=== PATIENT | male | born 1995 | race Caucasian/White ===

== ENCOUNTER 2018-09-19 11:18 | Emergency (ER) | payer SELFPAY ==
--- NOTE | 2018-09-19 12:12 | EDPHYS ---
Physician Documentation [facility] Name: uHssain Newton Age: 23 yrs Sex: Male : 1995 Arrival Date: 09/19/2018 Time: 11:19 Bed 18 Private MD: ED Physician Tomás Ferro HPI: 09/19 11:34 This 23 yrs old Male presents to ER via Ambulatory with complaints of buttock jmm drainage. 11:34 The patient presents to the emergency department with drainage. Onset: The jmm symptoms/episode began/occurred 1 month(s) ago. Modifying factors: The symptoms are alleviated by nothing, The symptoms are aggravated by nothing. Associate signs and symptoms: Pertinent negatives: fever. This is a 23 year old male with a history of anxiety, depression, htn that presents to the ED with drainage from his buttocks for 1 month. Patient states the drainage is occasionally bloody. Denies fever, denies chills. . Historical: - Allergies: 11:26 Abilify; ss - Home Meds: 11:26 None [Active]; ss - PMHx: 11:26 Anxiety; Depression; ss - PSHx: 11:26 Tonsillectomy; ss - Immunization history:: Adult Immunizations up to date. - Social history:: Smoking status: Patient/guardian denies using tobacco. - Ebola Screening: : Patient denies exposure to infectious person Patient denies travel to an Ebola-affected area in the 21 days before illness onset. ROS: 11:34 Constitutional: Negative for fever, chills, and weight loss, Cardiovascular: Negative jmm for chest pain, palpitations, and edema, Respiratory: Negative for shortness of breath, cough, wheezing, and pleuritic chest pain. 11:34 MS/extremity: Positive for drainage. 11:34 Skin: Positive for 11:34 All other systems are negative. Exam: 11:34 Constitutional: This is a well developed, well nourished patient who is awake, alert, jmm and in no acute distress. Head/Face: atraumatic. Eyes: EOMI, no conjunctival erythema appreciated ENT: Moist Mucus Membranes Neck: Trachea midline, Supple Chest/axilla: Normal chest wall appearance and motion. Cardiovascular: Regular rate and rhythm. No edema appreciated Respiratory: Normal respirations, no respiratory distress appreciated 11:34 Abdomen/GI: Inspection: obese Palpation: abdomen is soft and non-tender, in all quadrants. 11:34 Skin: open pilonidal sinus noted without surrounding erythema or purulent drainage appreciated at the gluteal cleft. . 11:34 Neuro: Orientation: is normal, Mentation: is normal, Memory: is normal. 11:34 Psych: Behavior/mood is pleasant, cooperative. Vital Signs: 11:26 BP 191 / 84; Pulse 87; Resp 23; Temp 98.3(TE); Pulse Ox 99% on R/A; Height 6 ft. 0 in. ss (182.88 cm); Pain 0/10; 12:11 BP 178 / 94; Pulse 84; Resp 16; Pulse Ox 98% on R/A; iw MDM: 11:34 Patient medically screened. [facility] 12:01 Data reviewed: vital signs, nurses notes. Counseling: I had a detailed discussion with [facility] the patient and/or guardian regarding: the historical points, exam findings, and any diagnostic results supporting the discharge/admit diagnosis, the need for outpatient follow up, to return to the emergency department if symptoms worsen or persist or if there are any questions or concerns that arise at home. 12:01 ED course: PE findings consistent with pilonidal sinus without infection. Patient is [facility] advised to follow up with gen surgery and otherwise given strict return precautions. Patient understood and agrees with the plan of care. . 12:01 Counseling: I had a detailed discussion with the patient and/or guardian regarding: the m presence of at least one elevated blood pressure reading (>120/80) during this emergency department visit. 09/19 11:38 Order name: Vital Signs; Complete Time: 12:12 [facility] Administered Medications: No medications were administered Disposition: 15:15 Co-signature as Attending Physician, Tomás Ferro MD I agree with the assessment and [facility] plan of care. Disposition: 09/19/18 12:11 Discharged to Home. Impression: Pilonidal cyst and sinus. - Condition is Stable. - Discharge Instructions: Pilonidal Cyst. - Prescriptions for Bactrim DS 800- 160 mg Oral Tablet - take 1 tablet by ORAL route every 12 hours for 10 days; 20 tablet. - Medication Reconciliation Form, Thank You Letter, Antibiotic Education, Prescription Opioid Use form. - Follow up: Ousmane Montalvo MD; When: 2 - 3 days; Reason: Recheck today's complaints, Continuance of care, Re-evaluation by your physician. Signatures: Tomás Ferro MD MD cha Mickail, Joel, PA PA jmm Williams, Irene, RN RN iw Smirch, Shelby, RN RN ss Corrections: (The following items were deleted from the chart) 12:39 12:11 09/19/2018 12:11 Discharged to Home. Impression: Pilonidal cyst and sinus. iw Condition is Stable. Forms are Medication Reconciliation Form, Thank You Letter, Antibiotic Education, Prescription Opioid Use. Follow up: Ousmane Montalvo; When: 2 - 3 days; Reason: Recheck today's complaints, Continuance of care, Re-evaluation by your physician. [facility] 12:44 12:41 This 23 yrs old Male presents to ER via Ambulatory with complaints of jmm bloody drainage from buttock. jmm
--- NOTE | 2018-09-19 12:12 | ER ---
Nurse's Notes [facility] Name: Hussain Newton Age: 23 yrs Sex: Male : 1995 Arrival Date: 09/19/2018 Time: 11:19 Bed 18 Private MD: Diagnosis: Pilonidal cyst and sinus Presentation: 09/19 11:24 Presenting complaint: Patient states: bloody drainage from rectal area that began 1 ss month ago. Denies fever. Transition of care: patient was not received from another setting of care. Onset of symptoms is unknown. Risk Assessment: Do you want to hurt yourself or someone else? Patient reports no desire to harm self or others. Initial Sepsis Screen: Does the patient meet any 2 criteria? No. Patient's initial sepsis screen is negative. Does the patient have a suspected source of infection? No. Patient's initial sepsis screen is negative. Care prior to arrival: None. 11:24 Method Of Arrival: Ambulatory ss 11:24 Acuity: ROBERTA 3 ss Triage Assessment: 12:39 General: Appears in no apparent distress. Behavior is calm, cooperative. iw 12:39 Pain:. iw Historical: - Allergies: 11:26 Abilify; ss - Home Meds: 11:26 None [Active]; ss - PMHx: 11:26 Anxiety; Depression; ss - PSHx: 11:26 Tonsillectomy; ss - Immunization history:: Adult Immunizations up to date. - Social history:: Smoking status: Patient/guardian denies using tobacco. - Ebola Screening: : Patient denies exposure to infectious person Patient denies travel to an Ebola-affected area in the 21 days before illness onset. Screenin:38 Abuse screen: Denies threats or abuse. Denies injuries from another. Nutritional iw screening: No deficits noted. Tuberculosis screening: No symptoms or risk factors identified. Fall Risk None identified. Assessment: 11:55 General: Appears in no apparent distress. Behavior is calm, cooperative. Neuro: Level iw of Consciousness is awake, alert, obeys commands, Oriented to person, place, time, Moves all extremities. Cardiovascular: Patient's skin is warm and dry. Respiratory: Respiratory effort is even, unlabored. Derm: Skin is intact, is healthy with good turgor. Musculoskeletal: Range of motion: intact in all extremities. 12:38 Reassessment: Patient appears in no apparent distress at this time. Patient and/or iw family updated on plan of care and expected duration. Pain level reassessed. Patient is alert, oriented x 3, equal unlabored respirations, skin warm/dry/pink. Vital Signs: 11:26 BP 191 / 84; Pulse 87; Resp 23; Temp 98.3(TE); Pulse Ox 99% on R/A; Height 6 ft. 0 in. ss (182.88 cm); Pain 0/10; 12:11 BP 178 / 94; Pulse 84; Resp 16; Pulse Ox 98% on R/A; iw ED Course: 11:19 Patient arrived in ED. as 11:25 Triage completed. ss 11:26 Arm band placed on right wrist. 11:29 Caleb Benjamin PA is PHCP. [facility] 11:29 Tomás Ferro MD is Attending Physician. [facility] 11:56 Mayur Meyer LVN is Primary Nurse. em 12:10 Ousmane Montalvo MD is Referral Physician. [facility] 12:38 Patient has correct armband on for positive identification. iw 12:38 No provider procedures requiring assistance completed. Patient did not have IV access iw during this emergency room visit. Administered Medications: No medications were administered Outcome: 12:11 Discharge ordered by MD. [facility] 12:38 Discharged to home ambulatory. iw 12:38 Condition: good 12:38 Discharge instructions given to patient, Instructed on discharge instructions, follow up and referral plans. medication usage, Demonstrated understanding of instructions, follow-up care, medications, Prescriptions given X 1. 12:39 Patient left the ED. iw Signatures: Caleb Benjamin PA PA Mayur Murray LVN LVN em Myesha Montalvo as Michelle Matute, RN RN Salma Gonzalez RN RN
== END 2018-09-19 12:39 | disposition home or self-care (01) ==
LOC: ER 11:18
DX: L05.91 Pilonidal cyst without abscess (principal); Z88.8 Allergy status to other drugs, medicaments and biological substances
CPT/HCPCS: 99282

== ENCOUNTER 2021-10-04 22:02 | Emergency (ER) | payer SELFPAY ==
[2021-10-05] MEDS ORDERED: NA CHLORIDE 0.9% 1,000 ML ONE (00:19)
[2021-10-05] MEDS ORDERED: MORPHINE 4 MG/ML SYR ONE (00:19)
[2021-10-05] MEDS ORDERED: ONDANSETRON 4 MG/2 ML VIAL ONE (00:19)
[2021-10-05 00:47] LABS: Absolute Lymphocytes (CBC) 1.9 K/uL (0.7-4.9); Lymphocytes % 20.8 % (15.3-44.8); MCV 83.3 fL (80-100); MPV 8.1 fL (7.6-11.3); RBC Red Blood Cell Count 4.92 M/uL (4.33-5.43)
[2021-10-05 00:59] LABS: Albumin 2.9 g/dL (3.4-5.0); Bilirubin Direct 0.1 mg/dL (0-0.2); Bilirubin Total 0.5 mg/dL (0.2-1.0); Magnesium 1.7 mg/dL (1.8-2.4); Potassium 4.2 mmol/L (3.5-5.1); Protein, Total 6.9 g/dL (6.4-8.2)
[2021-10-05] MEDS ORDERED: METRONIDAZOLE 500mg IVPB 500 MG/100 ML BAG IV ONE (01:59)
[2021-10-05] MEDS ORDERED: CIPROFLOXACIN 400mg IV 400 MG/200 ML BAG IV ONE (01:59)
[2021-10-05 02:10] LABS: Urine Blood Negative (Negative); Urine Glucose Negative (Negative); Urine Protein Negative (Negative); Urine Specific Gravity >=1.030 (1.005-1.030); Urine pH 5.5 (5.0-7.0)
[2021-10-05 02:30] LABS: Urine Bacteria 20-50 /HPF (<20)
[2021-10-05 02:31] LABS: Urine RBC <5 /HPF (None Seen)
--- NOTE | 2021-10-05 02:38 | EDPHYS ---
Physician Documentation [facility] Name: Gilberto Nweton Age: 26 yrs Sex: Male : 1995 Arrival Date: 10/04/2021 Time: 22:05 Bed 2 Private MD: ED Physician Tomás Ferro HPI: 10/05 00:08 This 26 yrs old Male presents to ER via Ambulatory with complaints of danita Abdominal Pain, Diarrhea. 00:08 The patient presents to the emergency department with diarrhea, that is intermittent, danita abdominal pain, of the posterior aspect of left lateral abdomen, posterior aspect of right lateral abdomen, right lower quadrant and left lower quadrant. Onset: The symptoms/episode began/occurred today. Onset: The symptoms/episode began/occurred yesterday. Possible causes: unknown. The symptoms are aggravated by movement. Associated signs and symptoms: The patient has no apparent associated signs or symptoms. Severity of symptoms: At their worst the symptoms were. The patient has not experienced similar symptoms in the past. Historical: - Allergies: 10/04 22:28 Abilify; bb - PMHx: 22:28 Anxiety; Depression; bb - Immunization history:: Client reports having NOT received the Covid vaccine. - Social history:: Smoking status: Patient denies any tobacco usage or history of. ROS: 10/05 00:09 Constitutional: Negative for fever, chills, and weight loss, Eyes: Negative for injury, danita pain, redness, and discharge, ENT: Negative for injury, pain, and discharge, Neck: Negative for injury, pain, and swelling, Cardiovascular: Negative for chest pain, palpitations, and edema, Respiratory: Negative for shortness of breath, cough, wheezing, and pleuritic chest pain, Back: Negative for injury and pain, : Negative for injury, bleeding, discharge, and swelling, MS/Extremity: Negative for injury and deformity, Skin: Negative for injury, rash, and discoloration, Neuro: Negative for headache, weakness, numbness, tingling, and seizure, Psych: Negative for depression, anxiety, suicide ideation, homicidal ideation, and hallucinations, Allergy/Immunology: Negative for hives, rash, and allergies, Endocrine: Negative for neck swelling, polydipsia, polyuria, polyphagia, and marked weight changes, Hematologic/Lymphatic: Negative for swollen nodes, abnormal bleeding, and unusual bruising. Abdomen/GI: Positive for abdominal pain, diarrhea. Exam: 00:09 Constitutional: This is a well developed, well nourished patient who is awake, alert, danita and in no acute distress. Head/Face: Normocephalic, atraumatic. Eyes: Pupils equal round and reactive to light, extra-ocular motions intact. Lids and lashes normal. Conjunctiva and sclera are non-icteric and not injected. Cornea within normal limits. Periorbital areas with no swelling, redness, or edema. ENT: Nares patent. No nasal discharge, no septal abnormalities noted. Tympanic membranes are normal and external auditory canals are clear. Oropharynx with no redness, swelling, or masses, exudates, or evidence of obstruction, uvula midline. Mucous membranes moist. Neck: Trachea midline, no thyromegaly or masses palpated, and no cervical lymphadenopathy. Supple, full range of motion without nuchal rigidity, or vertebral point tenderness. No Meningismus. Chest/axilla: Normal chest wall appearance and motion. Nontender with no deformity. No lesions are appreciated. Cardiovascular: Regular rate and rhythm with a normal S1 and S2. No gallops, murmurs, or rubs. Normal PMI, no JVD. No pulse deficits. Respiratory: Lungs have equal breath sounds bilaterally, clear to auscultation and percussion. No rales, rhonchi or wheezes noted. No increased work of breathing, no retractions or nasal flaring. Back: No spinal tenderness. No costovertebral tenderness. Full range of motion. Male : Normal genitalia with no discharge or lesions. Skin: Warm, dry with normal turgor. Normal color with no rashes, no lesions, and no evidence of cellulitis. MS/ Extremity: Pulses equal, no cyanosis. Neurovascular intact. Full, normal range of motion. Neuro: Awake and alert, GCS 15, oriented to person, place, time, and situation. Cranial nerves II-XII grossly intact. Motor strength 5/5 in all extremities. Sensory grossly intact. Cerebellar exam normal. Normal gait. Psych: Awake, alert, with orientation to person, place and time. Behavior, mood, and affect are within normal limits. 00:09 Abdomen/GI: Inspection: distension, Bowel sounds: normal, Palpation: mild abdominal tenderness, in the right lower quadrant and left lower quadrant, Liver: no appreciated palpable abnormalities, Hernia: not appreciated. Vital Signs: 10/04 22:27 BP 179 / 85; Pulse 96; Resp 22 S; Temp 98.7(O); Pulse Ox 98% on R/A; Weight 259 kg (M); bb Height 6 ft. 0 in. (182.88 cm) (R); Pain 7/; 10/05 04:56 BP 130 / 80; Pulse 82; Resp 16; Temp 98(O); Pulse Ox 99% on R/A; Pain 0/10; kl 10/04 22:27 Body Mass Index 77.44 (259.00 kg, 182.88 cm) bb MDM: 10/04 23:45 Patient medically screened. [facility] 10/05 00:10 Differential diagnosis: Nonspecific abd pain, gastritis, cholecystitis, pancreatitis, danita appendicitis, diverticulitis, viral gastroenteritis, gastroenteritis, bowel obstruction, Cholelithiasis, diverticulitis, gastritis. Differential Diagnosis sepsis. Data reviewed: vital signs, nurses notes, lab test result(s), EKG, radiologic studies, CT scan, plain films. Data interpreted: campus monitor: rate is 96 beats/min, rhythm is regular, Pulse oximetry: on room air is 98 %. Test interpretation: by ED physician or midlevel provider: ECG, plain radiologic studies. Counseling: I had a detailed discussion with the patient and/or guardian regarding: the historical points, exam findings, and any diagnostic results supporting the discharge/admit diagnosis, lab results, radiology results, the need for outpatient follow up, for definitive care, a family practitioner. 10/04 23:59 Order name: Basic Metabolic Panel; Complete Time: 02:00 [facility] 10/04 23:59 Order name: CBC with Diff; Complete Time: 02:00 [facility] 10/04 23:59 Order name: LFT's; Complete Time: 02:00 [facility] 10/04 23:59 Order name: Magnesium; Complete Time: 02:00 [facility] 10/04 23:59 Order name: NT PRO-BNP; Complete Time: 02:00 [facility] 10/04 23:59 Order name: Troponin HS; Complete Time: 02:00 10/04 23:59 Order name: Lipase; Complete Time: 02:00 10/05 00:00 Order name: Urine Microscopic Only; Complete Time: 02:36 [facility] 10/05 00:00 Order name: Lactate [facility] 10/05 00:01 Order name: Fecal Leukocyte Stain [facility] 10/05 00:01 Order name: Stool Culture [facility] 10/05 02:10 Order name: Urine Dipstick-Ancillary; Complete Time: 02:36 EDMD 10/05 02:34 Order name: Urine Culture EDMD 10/04 23:59 Order name: EKG; Complete Time: 00:02 [facility] 10/04 23:59 Order name: Cardiac monitoring; Complete Time: 01:46 [facility] 10/04 23:59 Order name: EKG - Nurse/Tech; Complete Time: 01:41 [facility] 10/04 23:59 Order name: IV Saline Lock; Complete Time: 00:34 [facility] 10/04 23:59 Order name: Labs collected and sent; Complete Time: 01:46 [facility] 10/04 23:59 Order name: O2 Per Protocol; Complete Time: 00:34 [facility] 10/04 23:59 Order name: O2 Sat Monitoring; Complete Time: 00:34 [facility] 10/05 00:00 Order name: Abdomen Acute Series XRAY [facility] 10/05 00:00 Order name: Urine Dipstick-Ancillary (obtain specimen); Complete Time: 02:16 [facility] Administered Medications: 00:32 Drug: morphine 4 mg Route: IVP; Infused Over: 4 mins; Site: left antecubital; kl 00:32 Drug: Zofran (Ondansetron) 4 mg Route: IVP; Site: left antecubital; kl 02:08 Drug: Flagyl (metroNIDAZOLE) 500 mg Volume: 100 ml; Route: IVPB; Rate: 200 ml/hr; kl Infused Over: 30 mins; Site: left antecubital; 02:11 Drug: NS 0.9% 1000 ml Route: IV; Rate: 1 bolus; Site: left forearm; kd3 02:40 Drug: Cipro (ciprofloxacin) 400 mg Volume: 200 ml; Route: IVPB; Infused Over: 60 mins; kl Site: right antecubital; 03:50 Drug: Magnesium Sulfate 2 grams Route: IVPB; Infused Over: 1 hrs; Site: left kl antecubital; Disposition Summary: 10/05/21 02:37 Discharge Ordered Location: Home danita Problem: new danita Symptoms: have improved danita Condition: Stable danita Diagnosis - Abdominal pain, Generalized danita - Diarrhea, unspecified danita - Morbid (severe) obesity due to excess calories danita - Hypomagnesemia [facility] Followup: danita - With: Private Physician - When: 2 - 3 days - Reason: Recheck today's complaints, Continuance of care, Re-evaluation by your physician Discharge Instructions: - Discharge Summary Sheet danita - Abdominal Pain, Adult danita - Diarrhea, Adult danita - Obesity, Adult danita - Abdominal Pain, Adult, [id number] danita - Hypomagnesemia danita - Diarrhea, Adult, [id number] [facility] Forms: - Medication Reconciliation Form [facility] - Thank You Letter [facility] - Antibiotic Education [facility] - Prescription Opioid Use [facility] Prescriptions: - Flagyl 500 mg Oral Tablet - take 1 tablet by ORAL route every 8 hours for 7 days; 21 tablet; Refills: 0, [facility] Product Selection Permitted - Pepcid 20 mg Oral Tablet - take 1 tablet by ORAL route every 12 hours for 10 days; 20 tablet; Refills: 0, [facility] Product Selection Permitted - Cipro 500 mg Oral Tablet - take 1 tablet by ORAL route every 12 hours for 7 days; 14 tablet; Refills: 0, [facility] Product Selection Permitted - dicyclomine 20 mg Oral Tablet - take 1 tablet by ORAL route 4 times per day; 28 tablet; Refills: 0, Product [facility] Selection Permitted Signatures: Dispatcher [employer] Indiana Ortiz RN Tomás Whitney MD MD cha Ballard, Brenda, RN RN bb Doucette, Kyli, RN RN kd3 Corrections: (The following items were deleted from the chart) 01:23 00:04 Chest Single View+[email or web address] ordered. EDMD EDMS
--- NOTE | 2021-10-05 02:38 | ER ---
Nurse's Notes [facility] Name: Gilberto Newton Age: 26 yrs Sex: Male : 1995 Arrival Date: 10/04/2021 Time: 22:05 Bed 2 Private MD: Diagnosis: Abdominal pain, Generalized;Diarrhea, unspecified;Morbid (severe) obesity due to excess calories;Hypomagnesemia Presentation: 10/04 22:27 Chief complaint: Patient states: he woke up around 1500 today with abdominal pain and bb diarrhea x 8. Coronavirus screen: At this time, the client does not indicate any symptoms associated with coronavirus-19. Ebola Screen: No symptoms or risks identified at this time. Initial Sepsis Screen: Does the patient meet any 2 criteria? No. Patient's initial sepsis screen is negative. Does the patient have a suspected source of infection? No. Patient's initial sepsis screen is negative. Risk Assessment: Do you want to hurt yourself or someone else? Patient reports no desire to harm self or others. Onset of symptoms was October 04, 2021. 22:27 Method Of Arrival: Ambulatory bb 22:27 Acuity: ROBERTA 3 bb Triage Assessment: 22:28 General: Appears uncomfortable, obese, Behavior is calm, cooperative. Pain: Complains bb of pain in abdomen Pain currently is 7 out of 10 on a pain scale. Neuro: Level of Consciousness is awake, alert, obeys commands, Oriented to person, place, time, situation. Cardiovascular: Capillary refill is > 3 seconds Patient's skin is warm and dry. Respiratory: Respiratory effort is labored. GI: Abdomen is obese, Reports lower abdominal pain, upper abdominal pain, diarrhea. Musculoskeletal: Circulation, motion, and sensation intact. Historical: - Allergies: 22:28 Abilify; bb - PMHx: 22:28 Anxiety; Depression; bb - Immunization history:: Client reports having NOT received the Covid vaccine. - Social history:: Smoking status: Patient denies any tobacco usage or history of. Screenin/11 04:56 Abuse screen: Denies threats or abuse. Nutritional screening: No deficits noted. kl Tuberculosis screening: No symptoms or risk factors identified. Fall Risk None identified. Assessment: 10/04 23:45 General: Appears uncomfortable, obese, Behavior is calm, cooperative. Pain: Complains kl of pain in left lower quadrant and right lower quadrant. Neuro: No deficits noted. Cardiovascular: No deficits noted. Respiratory: No deficits noted. GI: Bowel sounds present X 4 quads. Abd is soft Abdomen is tender to palpation X 4 quads. : No deficits noted. No signs and/or symptoms were reported regarding the genitourinary system. EENT: No deficits noted. No signs and/or symptoms were reported regarding the EENT system. Derm: No deficits noted. No signs and/or symptoms reported regarding the dermatologic system. Vital Signs: 22:27 BP 179 / 85; Pulse 96; Resp 22 S; Temp 98.7(O); Pulse Ox 98% on R/A; Weight 259 kg (M); bb Height 6 ft. 0 in. (182.88 cm) (R); Pain 7; 10/05 04:56 BP 130 / 80; Pulse 82; Resp 16; Temp 98(O); Pulse Ox 99% on R/A; Pain 010; kl 10/04 22:27 Body Mass Index 77.44 (259.00 kg, 182.88 cm) ED Course: 10/04 22:05 Patient arrived in ED. bp1 22:28 Triage completed. bb 22:28 Arm band placed on Patient placed in waiting room, Patient notified of wait time. bb 23:45 Tomás Ferro MD is Attending Physician. [facility] 10/05 00:21 Missed attempt(s): 20 gauge in left antecubital area. kl 01:15 Talita Miguel, RN is Primary Nurse. kd3 01:25 Abdomen Acute Series XRAY In Process Unspecified. EDMS 01:45 No apparent distress. Resting quietly. Appears to be sleeping. kl 02:12 Fecal Leukocyte Stain Sent. kd3 02:12 Stool Culture Sent. kd3 02:16 Urine Microscopic Only Sent. kd3 02:30 No apparent distress. Resting quietly. Appears to be sleeping. kl 04:56 No provider procedures requiring assistance completed. IV discontinued, intact, kl bleeding controlled, No redness/swelling at site. Pressure dressing applied. Administered Medications: 00:32 Drug: morphine 4 mg Route: IVP; Infused Over: 4 mins; Site: left antecubital; kl 00:32 Drug: Zofran (Ondansetron) 4 mg Route: IVP; Site: left antecubital; kl 02:08 Drug: Flagyl (metroNIDAZOLE) 500 mg Volume: 100 ml; Route: IVPB; Rate: 200 ml/hr; kl Infused Over: 30 mins; Site: left antecubital; 02:11 Drug: NS 0.9% 1000 ml Route: IV; Rate: 1 bolus; Site: left forearm; kd3 02:40 Drug: Cipro (ciprofloxacin) 400 mg Volume: 200 ml; Route: IVPB; Infused Over: 60 mins; kl Site: right antecubital; 03:50 Drug: Magnesium Sulfate 2 grams Route: IVPB; Infused Over: 1 hrs; Site: left kl antecubital; Outcome: 02:37 Discharge ordered by MD. samayoa 04:57 Patient left the ED. Signatures: Dispatcher [employer] EDMS Indiana Johnson RN RN kl Anderson, Corey, MD MD cha Ballard, Brenda, RN RN bb Paniauga, Brittany bp1 Doucette, Kyli, RN RN kd3
[2021-10-05] MEDS ORDERED: Magnesium Sulfate 2gm IVPB 2 G/50 ML BAG IV ONE (02:49)
[2021-10-05 05:05] VITALS: BP 130/80; TEMP 98; O2SAT 99
--- NOTE | 2021-10-05 14:31 | EKG ---
Test Date: 2021-10-05 Test Time: 01:42:09 Vamp Cut Out Worker: DIANNE MEASUREMENT RESULTS: Intervals: Rate: 73 MS: 192 QRSD: 98 QT: 382 QTc: 420 [place]: P: 27 MS: 192 QRS: 72 T: 56 INTERPRETIVE STATEMENTS: Normal sinus rhythm Normal ECG No previous ECG available for comparison Electronically Signed On 10-05-21 14:30:21 CDT by Juarez Davies
--- NOTE | 2021-10-05 18:44 | RAD REPORT ---
EXAM DESCRIPTION: RAD - Abdomen Acute Series - 10/05/2021 1:24 am CLINICAL HISTORY: Abdominal distention COMPARISON: None. FINDINGS: Single frontal view of the chest. Upright and supine views of the abdomen. Large body habi tus. Cardiomediastinal silhouette: Normal size and contour. Lungs: No consolidation, pneumothorax, or pleural effusion. Bones: No acute osseous abnormality. Bowel: No dilated loops of large or small bowel. Peritoneum: No free intraperitoneal air identified. Solid organs: No definite organomegaly. Calcifications: No abnormal calcifications. IMPRESSION: 1. No acute pulmonary process identified. 2. Nonobstructive bowel gas pattern. Electronically signed by: Russ Arevalo 10/05/2021 2:19 AM CDT Due to temporary technical issues with the PACS/Fluency reporting system, reports are being signed by the in house radiologists without review as a courtesy to insure prompt reporting. The interpreting radiologist is fully responsible for the content of the report.
== END 2021-10-05 04:57 | disposition home or self-care (01) ==
LOC: ER 22:02
DX: R10.84 Generalized abdominal pain (principal); R19.7 Diarrhea, unspecified; E83.42 Hypomagnesemia; E66.01 Morbid (severe) obesity due to excess calories; Z68.45 Body mass index [BMI] 70 or greater, adult; F41.9 Anxiety disorder, unspecified; F32.A Depression, unspecified
CPT/HCPCS: 36415; 74022; 80048; 80076; 81003; 81015; 83605; 83690; 83735; 83880; 84484; 85025; 87045; 87046; 87086; 87088; 89055; 93005; 99283; J0744; J2405; J3475; J7030

== ENCOUNTER 2022-05-08 09:38 | Emergency (ER) | payer OTHER ==
[2022-05-08 10:30] LABS: Absolute Lymphocytes (CBC) 3.2 K/uL (0.7-4.9); Lymphocytes % 33.1 % (15.3-44.8); MCV 84.4 fL (80-100); MPV 7.6 fL (7.6-11.3); RBC Red Blood Cell Count 5.33 M/uL (4.33-5.43)
[2022-05-08 10:51] LABS: Magnesium 2.1 mg/dL (1.6-2.4); Potassium 4.1 mmol/L (3.5-5.1); Troponin High Sensitivity 7.3 pg/mL (<58.9)
--- NOTE | 2022-05-08 12:28 | RAD REPORT ---
EXAM DESCRIPTION: RAD - Hip Left 2 View - 05/08/2022 11:29 am CLINICAL HISTORY: PAIN COMPARISON: No comparisons FINDINGS: Mild arthritic changes are present left hip. No fracture appreciated. Significant soft tis livier artifact limits the quality of the study. Consider CT imaging if pain persists or progresses.
--- NOTE | 2022-05-08 12:28 | RAD REPORT ---
EXAM DESCRIPTION: RAD - Chest Single View - 05/08/2022 11:29 am CLINICAL HISTORY: DYSPNEA Chest pain. COMPARISON: Abdomen Acute Series dated 10/05/2021 FINDINGS: Portable technique limits examination quality. The lungs are grossly clear. The heart is normal in size. No displaced fractures. IMPRESSION: No acute intrathoracic process suspected.
[2022-05-08] MEDS ORDERED: HYDROCODONE/APAP 10/325 TAB ONE (12:54)
[2022-05-08] MEDS ORDERED: KETOROLAC 30 MG/ML INJ ONE (12:54)
--- NOTE | 2022-05-08 12:59 | ER ---
Nurse's Notes [facility] Name: Hussain Newton Age: 26 yrs Sex: Male : 1995 Arrival Date: 05/08/2022 Time: 09:39 Bed 5 Private MD: Diagnosis: Dyspnea, unspecified;Pain in left hip Presentation: 05/08 09:45 Chief complaint: SOB on exertion x years, left hip pain x 3 days. Denies injury. hb Coronavirus screen: At this time, the client does not indicate any symptoms associated with coronavirus-19. Ebola Screen: No symptoms or risks identified at this time. Initial Sepsis Screen: Does the patient meet any 2 criteria? No. Patient's initial sepsis screen is negative. Does the patient have a suspected source of infection? No. Patient's initial sepsis screen is negative. Risk Assessment: Do you want to hurt yourself or someone else? Patient reports no desire to harm self or others. Onset of symptoms was May 05, 2022. 09:45 Method Of Arrival: Ambulatory hb 09:45 Acuity: ROBERTA 2 ss Historical: - Allergies: 09:46 Abilify; hb - PMHx: 09:46 Anxiety; Depression; hb - Immunization history:: Adult Immunizations up to date. - Social history:: Smoking status: Patient denies any tobacco usage or history of. Screenin:12 [facility] ED Fall Risk Assessment (Adult) History of falling in the last 3 months, sg5 including since admission No falls in past 3 months (0 pts). Abuse screen: Denies threats or abuse. Nutritional screening: Obesity. Tuberculosis screening: No symptoms or risk factors identified. Assessment: 10:12 General: Appears uncomfortable, Behavior is calm, cooperative, appropriate for age, sg5 Reports fatigue for >3 days. Pain: Complains of pain in Left hip. Pain does not radiate. Pain currently is 4 out of 10 on a pain scale. at worst was 8 out of 10 on a pain scale. Cardiovascular: No deficits noted. Reports shortness of breath, Heart tones S1 S2 present Rhythm is regular. Respiratory: Reports shortness of breath on exertion Airway is patent Respiratory effort is unlabored, Breath sounds are diminished bilaterally. in left lower lobe, right lower lobe, left posterior lower lobe, right posterior middle lobe and right posterior lower lobe Breath sounds with wheezes bilaterally. GI: No deficits noted. No signs and/or symptoms were reported involving the gastrointestinal system. : No deficits noted. No signs and/or symptoms were reported regarding the genitourinary system. EENT: No deficits noted. No signs and/or symptoms were reported regarding the EENT system. Derm: No deficits noted. No signs and/or symptoms reported regarding the dermatologic system. Musculoskeletal: Reports pain in Left Hip. 11:22 Reassessment: No changes from previously documented assessment. Patient and/or family sg5 updated on plan of care and expected duration. Pain level reassessed. Patient is alert, oriented x 3, equal unlabored respirations, skin warm/dry/pink. Vital Signs: 09:45 BP 166 / 84; Pulse 129; Resp 24; Pulse Ox 96% on R/A; Weight 226.8 kg; Height 6 ft. 0 hb in. ; Pain 7/10; 11:16 BP 156 / 75; Pulse 98; Resp 20; Pulse Ox 96% on R/A; Pain 5/10; sg5 12:19 BP 152 / 94; Pulse 95; Resp 18; Pulse Ox 98% on R/A; ld1 12:33 BP 162 / 88; Pulse 93; Resp 20; Pulse Ox 98% on R/A; Pain 4/10; sg5 09:45 Body Mass Index 67.81 (226.80 kg, 182.88 cm) hb 09:45 Pain Scale: Adult hb 11:16 Pain Scale: Adult sg5 12:33 Pain Scale: Adult sg5 ED Course: 09:39 Patient arrived in ED. am2 09:40 [facility]allie Hernandez [facility]C [facility] kb 09:40 Henrry Best MD is Attending Physician. kb 09:46 Triage completed. hb 09:46 Arm band placed on. hb 10:11 Dori Mabry, LAVERN is Primary Nurse. sg5 10:12 Patient has correct armband on for positive identification. Bed in low position. Call sg5 light in reach. Side rails up X 1. 10:20 Inserted saline lock: 22 gauge in right upper arm, using aseptic technique. Blood ll1 collected. 11:31 XRAY Chest (1 view) In Process Unspecified. EDMS 11:31 Hip Left 2 View XRAY In Process Unspecified. EDMS Administered Medications: 12:53 Drug: Ketorolac IVP 15 mg Route: IVP; Site: right upper arm; ld1 12:53 Drug: [place] PO 10 mg-325 mg 1 tabs Route: PO; ld1 Medication: 10:12 VIS not applicable for this client. sg5 Outcome: 12:59 Discharge ordered by MD. montes Signatures: Dispatcher [employer] EDMS Kallie Hernandez, RAVINDER-C SOCIAL SERVICES DESIGNEE-Salma Han RN RN ss Erlinda Gómez RN RN Vargas, Teresa am2 Homar Johnson RN RN ll1 Tatiana Brown RN RN ld1 Dori Mabry RN RN sg5 Corrections: (The following items were deleted from the chart) 09:49 09:45 Pulse 129bpm; Resp 24bpm; Pulse Ox 96% RA; 226.8 kg; Height 6 ft.; BMI: 67.8; hb Pain 7/10, Adult; hb 09:51 09:45 Acuity: ROBERTA 3 hb ss 11:23 10:12 Respiratory: Reports shortness of breath on exertion Airway is patent Respiratory sg5 effort is unlabored, Breath sounds are diminished bilaterally. in left lower lobe, right lower lobe, left posterior lower lobe, right posterior middle lobe and right posterior lower lobe sg5
--- NOTE | 2022-05-08 13:00 | EDPHYS ---
Physician Documentation [facility] Name: Hussain Newton Age: 26 yrs Sex: Male : 1995 Arrival Date: 05/08/2022 Time: 09:39 Bed 5 Private MD: ED Physician Henrry Best HPI: 05/08 10:52 This 26 yrs old Male presents to ER via Ambulatory with complaints of Breathing kb Difficulty, Hip Pain. 10:53 The patient or guardian reports pain. that occurred at home, sustained from unknown kb reason, There is no obvious deformity, The patient is able to self ambulate. The patient is able to bear their full body weight. There is no radiation of the patient's discomfort. The complaints affect the left hip. Onset: The symptoms/episode began/occurred 2 day(s) ago. Modifying factors: The symptoms are alleviated by nothing, the symptoms are aggravated by sitting, laying. Associated signs and symptoms: Loss of consciousness: the patient experienced no loss of consciousness, Pertinent positives: shortness of breath. Severity of symptoms: At their worst the symptoms were moderate, in the emergency department the symptoms are unchanged. The patient has not experienced similar symptoms in the past. The patient has not recently seen a physician. Patient is a 26-year-old male with no known medical history who presents for left hip pain that started 2 to 3 days ago. Denies injury or trauma. Reports he had been fine all day and noticed the pain when he tried to lay down at night. Also reports shortness of breath on exertion that he has had ever since he can remember. States " I am not here for that but I was told to let you know about it so I can get it checked out.". Historical: - Allergies: 09:46 Abilify; hb - PMHx: 09:46 Anxiety; Depression; hb - Immunization history:: Adult Immunizations up to date. - Social history:: Smoking status: Patient denies any tobacco usage or history of. ROS: 10:48 Constitutional: Negative for fever, chills, and weight loss. kb 10:48 Respiratory: Positive for dyspnea on exertion, shortness of breath, on exertion. 10:48 MS/extremity: Positive for pain, of the left hip. 10:48 All other systems are negative. Exam: 10:20 ECG was reviewed by the Attending Physician. rn 10:48 Constitutional: This is a well developed, well nourished patient who is awake, alert, kb and in no acute distress. Head/Face: Normocephalic, atraumatic. ENT: Moist Mucous membranes Cardiovascular: Regular rate and rhythm with a normal S1 and S2. No gallops, murmurs, or rubs. No pulse deficits. Abdomen/GI: Soft, non-tender. No distention Skin: Warm, dry with normal turgor. Normal color. Neuro: Awake and alert, GCS 15, oriented to person, place, time, and situation. Moves all extremities. Normal gait. 10:48 Respiratory: moderate respiratory distress is noted, Respirations: labored breathing, that is moderate, Breath sounds: are clear throughout. 10:48 Musculoskeletal/extremity: Extremities: grossly normal except: noted in the left hip: pain, tenderness, ROM: intact in all extremities, Circulation is intact in all extremities. Sensation intact. Weight bearing: able to fully bear weight. Vital Signs: 09:45 BP 166 / 84; Pulse 129; Resp 24; Pulse Ox 96% on R/A; Weight 226.8 kg; Height 6 ft. 0 hb in. ; Pain 7/10; 11:16 BP 156 / 75; Pulse 98; Resp 20; Pulse Ox 96% on R/A; Pain 5/10; sg5 12:19 BP 152 / 94; Pulse 95; Resp 18; Pulse Ox 98% on R/A; ld1 12:33 BP 162 / 88; Pulse 93; Resp 20; Pulse Ox 98% on R/A; Pain 4/10; sg5 09:45 Body Mass Index 67.81 (226.80 kg, 182.88 cm) hb 09:45 Pain Scale: Adult hb 11:16 Pain Scale: Adult sg5 12:33 Pain Scale: Adult sg5 MDM: 09:43 Patient medically screened. kb 10:51 Data reviewed: vital signs, nurses notes. kb 05/08 09:52 Order name: EKG; Complete Time: 09:52 kb 05/08 09:52 Order name: Cardiac monitoring; Complete Time: 10:12 kb 05/08 09:52 Order name: O2 Per Protocol; Complete Time: 10:12 kb 05/08 09:52 Order name: O2 Sat Monitoring; Complete Time: 10:12 kb 05/08 09:52 Order name: EKG - Nurse/Tech; Complete Time: 10:20 kb 05/08 09:52 Order name: IV Saline Lock; Complete Time: 10:31 kb 05/08 09:52 Order name: Labs collected and sent; Complete Time: 10:31 kb 05/08 09:52 Order name: CBC with Diff; Complete Time: 10:37 kb 05/08 09:52 Order name: Basic Metabolic Panel; Complete Time: 10:56 kb 05/08 09:52 Order name: Magnesium; Complete Time: 10:56 kb 05/08 09:52 Order name: NT PRO-BNP; Complete Time: 10:56 kb 05/08 09:52 Order name: Troponin HS; Complete Time: 10:56 kb 05/08 09:52 Order name: XRAY Chest (1 view); Complete Time: 12:35 kb 05/08 09:52 Order name: Hip Left 2 View XRAY; Complete Time: 12:35 kb EC:20 Rate is 101 beats/min. Rhythm is regular. Right axis deviation noted. QRS is positive rn in lead aVF and negative in lead I. [place] interval is normal. QRS interval is normal. QT interval is normal. No Q waves. T waves are Normal. No ST changes noted. Clinical impression: Normal ECG. Interpreted by me. Reviewed by me. Administered Medications: 12:53 Drug: Ketorolac IVP 15 mg Route: IVP; Site: right upper arm; ld1 12:53 Drug: [place] PO 10 mg-325 mg 1 tabs Route: PO; ld1 Disposition Summary: 05/08/22 12:59 Discharge Ordered Location: Home kb Condition: Stable kb Diagnosis - Dyspnea, unspecified kb - Pain in left hip kb Followup: kb - With: Emergency Department - When: As needed - Reason: Worsening of condition Followup: kb - With: Private Physician - When: 2 - 3 days - Reason: Recheck today's complaints, Continuance of care, Re-evaluation by your physician Forms: - Medication Reconciliation Form kb - Thank You Letter kb - Antibiotic Education kb - Prescription Opioid Use kb Signatures: Dispatcher [employer] EDMS Kallie Hernandez, MUSTAPHA CASTELLON-Henrry Reid MD MD rn Baxter, Heather, RN RN Tatiana Brown RN RN ld1
[2022-05-08 16:50] VITALS: O2SAT 96
[2022-05-08 17:29] VITALS: BP 156/75
--- NOTE | 2022-05-09 13:23 | EKG ---
Test Date: 2022-05-08 Test Time: 10:17:31 Blender Operator: EMILIA MEASUREMENT RESULTS: Intervals: Rate: 101 AK: 168 QRSD: 88 QT: 328 QTc: 425 [place]: P: 63 AK: 168 QRS: 129 T: 131 INTERPRETIVE STATEMENTS: Sinus tachycardia Right axis deviation Abnormal ECG Compared to ECG 10/05/2021 01:42:09 Right-axis deviation now present Sinus rhythm no longer present Electronically Signed On 05-09-22 13:20:08 CDT by Juarez Davies
== END 2022-05-08 13:25 | disposition home or self-care (01) ==
LOC: ER 09:38
DX: R06.00 Dyspnea, unspecified (principal); M25.552 Pain in left hip; F32.A Depression, unspecified
CPT/HCPCS: 36415; 71045; 80048; 83735; 83880; 84484; 85025; 93005; 96374; 99284